=== PATIENT | female | born 1980 | race Two or more races ===

== ENCOUNTER → 2017-05-13 | Outpatient (CLI) | payer BC ==
--- NOTE | 2017-05-13 16:35 | RADRPT ---
PROCEDURE: XR right knee. CLINICAL INDICATION: Knee pain TECHNIQUE: AP weightbearing, PA weightbearing, lateral weightbearing and sunrise views are availab le for review. COMPARISON: None available FINDINGS: There is moderate osteoarthrosis involving the lateral tibial femoral compartment. This is associate d with joint space narrowing, subchondral sclerosis and osteophytosis. There is otherwise normal mineralization, architecture and alignment. No fractures are identified. No osseous lesions are identified. The soft tissues are unremarkable. IMPRESSION: Moderate osteoarthrosis involving the lateral tibial femoral compartment. RPTAT: [facility] .Chaim Todd MD, Date Time Electronically viewed and signed by .Chaim Todd MD, on 05/13/2017 16:35 .B/
== END | disposition home or self-care (01) ==
LOC: HKI 15:24
PROVIDERS: ATTEND Orthopaedic Surgery
DX: M25.561 Pain in right knee (principal); M17.11 Unilateral primary osteoarthritis, right knee
CPT/HCPCS: 73564; G0463